=== PATIENT | female | born 1955 ===

== ENCOUNTER 2025-05-10 11:29 | Outpatient (AMB) | payer OTHER, MEDICAID, SELFPAY ==
[2025-05-10 11:57] VITALS: BP 118/70; PULSE 79; TEMP 36.8; O2SAT 97; BMI 27.4
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
== END 2025-05-10 13:12 | disposition home or self-care (01) ==
PROVIDERS: PCP Nurse Practitioner Family; Visit Provider Physician Assistant Medical
DX: T24.011A Burn of unspecified degree of right thigh, initial encounter (principal)